=== PATIENT | male | born 1985 | race Caucasian/White ===

== ENCOUNTER 2024-04-08 01:34 | Inpatient (IN) | payer OTHER ==
[2024-04-08] MEDS ORDERED: IBUPROFEN 400 MG TABLET (FP) PO PRN (01:51)
[2024-04-08] MEDS ORDERED: LOPERAMIDE HCL 2 MG CAPSULE PO PRN (01:51)
[2024-04-08] MEDS ORDERED: ONDANSETRON *ODT* 4 MG TABLET SL PRN (01:51)
[2024-04-08] MEDS ORDERED: IBUPROFEN 600 MG TABLET (FP) PO PRN (01:51)
[2024-04-08] MEDS ORDERED: BISMUTH SUBSALICYLATE 524 MG/30 ML PO PRN (01:51)
[2024-04-08] MEDS ORDERED: MAG HYDROX/AL HYDROX/SIMETH 30 ML UNIT-DOSE CUP PO PRN (01:51)
[2024-04-08] MEDS ORDERED: POLYETHYLENE GLYCOL (HEALTHYLAX) 3350 17 GM PACKET PO PRN (01:51)
[2024-04-08] MEDS ORDERED: NALOXONE (NARCAN) HCL 4 MG/0.1 ML SPRAY NS PRN (01:51)
[2024-04-08] MEDS ORDERED: guaiFENesin 600 MG TABLET.ER (FP) PO PRN (01:51)
[2024-04-08] MEDS ORDERED: DICYCLOMINE HCL 10 MG CAPSULE PO PRN (01:51)
[2024-04-08] MEDS ORDERED: ACETAMINOPHEN 325 MG TABLET (FP) PO PRN (01:51)
[2024-04-08] MEDS ORDERED: MAGNESIUM HYDROX 2400MG/30ML ORAL SUSPENSION 30 ML CUP PO PRN (01:51)
[2024-04-08] MEDS ORDERED: BENZONATATE 200 MG CAPSULE PO PRN (01:51)
[2024-04-08] MEDS ORDERED: BENZOCAINE/MENTHOL (CHLORASEPTIC ) LOZENGE MM PRN (01:51)
[2024-04-08] MEDS ORDERED: diazePAM 5 MG TABLET ONE ×3 (02:03→10:07)
[2024-04-08] MEDS: diazePAM 5 MG TABLET PO PRN (02:09)
[2024-04-08 02:40] VITALS: BMI 22.2
[2024-04-08] MEDS: diazePAM 5 MG TABLET PO SCH (06:45)
[2024-04-08] MEDS ORDERED: PRENATAL VITAMINS W/ FOLIC ACID TABLET (FP) PO ONE (10:07)
[2024-04-08] MEDS: PRENATAL VITAMINS W/ FOLIC ACID TABLET (FP) PO SCH (10:10)
[2024-04-08] MEDS: MELATONIN 5 MG TABLETS PO SCH (22:21)
[2024-04-08] MEDS: THIAMINE 100 MG TABLET PO SCH (22:21)
[2024-04-09] MEDS: diazePAM 5 MG TABLET PO SCH (05:25)
[2024-04-09 12:01] LABS: HEMATOCRIT 38.2 % (35.4-49); HEMOGLOBIN 12.9 GM/dL (11.7-16.9); MCH 30.8 pg (25.7-33.7); MCHC 33.7 g/dl (32.0-35.9); MEAN CELL VOLUME 91.4 fl (80-96); MEAN PLT VOLUME 8.5 fl (7.5-11.1); PLATELET COUNT 306 10^3/uL (134-434); RBC 4.18 M/mm3 (4.00-5.60); RDW 15.4 % (11.9-15.9); WHITE BLOOD COUNT 4.3 K/mm3 (4.0-10.0)
[2024-04-09 12:04] LABS: POTASSIUM 3.6 mmol/L (3.5-5.1)
[2024-04-09 12:06] LABS: CALCIUM 9.4 mg/dL (8.5-10.1)
[2024-04-09 12:07] LABS: BLOOD UREA NITROGEN 5.3 mg/dL (7-18)
[2024-04-09 12:10] LABS: CREATININE 0.7 mg/dL (0.55-1.3)
[2024-04-10] MEDS: diazePAM 5 MG TABLET PO SCH (05:43)
[2024-04-10] MEDS: hydrOXYzine PAMOATE 25 MG CAPSULE (FP) PO PRN (17:08)
[2024-04-10 21:50] VITALS: TEMP 98.1
[2024-04-10] MEDS: METHOCARBAMOL 500 MG TABLET PO PRN (22:15)
[2024-04-11] MEDS: diazePAM 5 MG TABLET PO ONE (05:25)
[2024-04-11 08:52] VITALS: BP 113/78; PULSE 99; RESP 18
[2024-04-11] MEDS: NALOXONE (NYS OPIOID OVERDOSE PROGRAM) 4 MG/0.1 ML SPRAY NS SCH (09:23)
== END 2024-04-11 09:43 | disposition home or self-care (01) | DRG 775 ==
LOC: YASAS 01:34 → Y6N 11:03
PROVIDERS: ADMIT Allergy & Immunology; ATTEND Surgery
PROC: HZ2ZZZZ Detoxification Services for Substance Abuse Treatment (ICD-10-PCS; principal; 2024-04-08)
DX: F10.230 Alcohol dependence with withdrawal, uncomplicated (principal); F10.282 Alcohol dependence with alcohol-induced sleep disorder; F10.24 Alcohol dependence with alcohol-induced mood disorder; Z59.00 Homelessness unspecified
CPT/HCPCS: 36415; 80053; 80305; 80307; 85027; 86780; 93005; 93010